=== PATIENT | female | born 1970 | race Two or more races ===

== ENCOUNTER 2023-02-17 11:42 | Emergency (ER) | payer OTHER ==
[~2023-02-17] VITALS: Ht 167.6 cm; Wt 82.6 kg
[2023-02-17] MEDS ORDERED: ZITHROMAX500 MG PO (15:21)
[2023-02-17] MEDS ORDERED: NORFLEX100MG PO (15:27)
[2023-02-17] MEDS ORDERED: ZYRTEC10 M3 PO (15:27)
== END 2023-02-17 15:57 | disposition home or self-care (01) ==
LOC: ER 11:42
DX: R51.9 Headache, unspecified (principal); Z20.822 Contact with and (suspected) exposure to COVID-19; Z91.013 Allergy to seafood